=== PATIENT | female | born 1975 | race Caucasian/White ===

== ENCOUNTER 2019-08-08 12:06 | Emergency (ER) | payer SELFPAY ==
[2019-08-08 12:24] VITALS: BP 111/77
--- NOTE | 2019-08-08 12:30 | UC ---
Complaint Female HPI - HPI Summary HPI Summary: 1 mo of increased urinary frequency, burning, white discharge and low pelvic discomfort. not on control. still gets period. nothing makes it better/ worse. of note is asking for refill of her urine medication. - History Of Current Complaint Chief Complaint: UCGU Stated Complaint: PERSONAL Time Seen by Provider: 08/08/19 12:26 Hx Obtained From: Patient Hx Last Menstrual Period: 07/15/19 Onset/Duration: Gradual Onset Pain Intensity: 6 Pain Scale Used: 0-10 Numeric - Allergies/Home Medications Allergies/Adverse Reactions: Allergies Allergy/AdvReac Type Severity Reaction Status Date / Time latex Allergy Rash Verified 08/08/19 12:22 PMH/Surg Hx/FS Hx/Imm Hx - Additional Past Medical History Additional PMH: chronic urinary issues Previously Healthy: Yes - Surgical History Surgical History: Yes Surgery Procedure, Year, and Place: Ovarian Cysts x 2; Right Fallopian Tube Removed s/p Ectopic - Family History Known Family History: Positive: Non-Contributory - Social History Alcohol Use: Occasionally Substance Use Type: Marijuana Substance Use Comment - Amount & Last Used: Occasionally Smoking Status (MU): Heavy Every Day Tobacco Smoker Type: Cigarettes Amount Used/How Often: 1 1/2 PPD Length of Time of Smoking/Using Tobacco: Since Age 12 Household Exposure Type: Cigarettes Review of Systems All Other Systems Reviewed And Are Negative: Yes Constitutional: Negative: Fever Genitourinary: Positive: Dysuria, Frequency, Vaginal/Penile Discharge. Negative : Hematuria, Vaginal/Penile Burning, Vaginal/Penile Itching, Abnormal Bleeding Musculoskeletal: Negative: Arthralgia - denies back pain Physical Exam Triage Information Reviewed: Yes Appearance: Well-Appearing Vital Signs: Initial Vital Signs Temp 98.3 F 08/08/19 12:19 Pulse 91 08/08/19 12:19 Resp 18 08/08/19 12:19 BP 111/77 08/08/19 12:19 Pulse Ox 97 08/08/19 12:19 Vital Signs Reviewed: Yes Eyes: Positive: Conjunctiva Clear Respiratory Exam: Normal Cardiovascular Exam: Normal Abdomen Description: Positive: Soft. Negative: CVA Tenderness (R), CVA Tenderness (L) Pelvic Exam: Negative: Other - DECLINED EXAM; SELF SWABBED Neurological: Positive: Alert Skin: Negative: Rashes Complaint Female Dx - Course Course Of Treatment: 1 mo of intermittent pelvic pain, vag d/c , dysuria. UA neg, urine hcg today neg. Will obtain gc/chlam. along w/ aptima testing. will call her if anything comes back positive. advised to use condoms. am able to refill her oxybutinin temporarily. - Differential Dx/Diagnosis Differential Diagnosis/HQI/PQRI: Pelvic Inflammatory Disease, Sexually Transmitted Disease, Urinary Tract Infection Provider Diagnosis: Vaginal discharge Discharge ED - Sign-Out/Discharge Documenting (check all that apply): Patient Departure All imaging exams completed and their final reports reviewed: No Studies - Discharge Plan Condition: Good Disposition: HOME Prescriptions: metroNIDAZOLE VAGINAL 0.75%* 1 applic VAGINAL BEDTIME 7 Days #1 tube Oxybutynin XL TAB* [Ditropan XL TAB*] 5 mg PO TID 30 Days #90 tab.xl Patient Education Materials: Vaginal Discharge (ED) Referrals: No Primary Care Phys,NOPCP [Primary Care Provider] - Additional Instructions: if anything comes up positive we will call you - Billing Disposition and Condition Condition: GOOD Disposition: Home
[2019-08-10 13:32] LABS: Chlamydia trachomatis NAA Negative (Negative); Neisseria gonorrhoeae (GC) NAA Negative (Negative)
== END 2019-08-08 13:08 | disposition home or self-care (01) ==
LOC: UCCORT 12:06
DX: N89.8 Other specified noninflammatory disorders of vagina (principal); R10.2 Pelvic and perineal pain; R35.0 Frequency of micturition; R30.0 Dysuria; Z32.02 Encounter for pregnancy test, result negative; Z30.41 Encounter for surveillance of contraceptive pills; Z91.040 Latex allergy status; F17.210 Nicotine dependence, cigarettes, uncomplicated
CPT/HCPCS: 84702; 87480; 87491; 87510; 87591; 87660; 99212; G0463

== ENCOUNTER 2019-09-27 14:29 | Emergency (ER) | payer SELFPAY ==
--- OUTSIDE RECORDS SUMMARY | 2019-09-27 14:38 | XMS REPORT | Summary of Care ---
:1975 Author Organization [facility] Address [address] [facility] [place] [address] Care Team Providers Name Role Phone None, [place] Primary Care Provider Unavailable Reason for Visit Reason Comments Establish Care Encounter Details Date Type Department Care Team Description 08/31/2019 Office Visit [facility] Neel Ramos MD Well adult exam (Primary Dx); Practice [address] [facility] Anxiety; [address] [place] [address] Bipolar 1 disorder (HCC); [place] [address] Asthma, unspecified asthma severity, unspecified whether complicated, unspecified whether persistent; [phone] Bacterial vaginosis Allergies Active Allergy Reactions Severity Noted Date Comments Latex Hives Medium 08/31/2019 documented as of this encounter (statuses as of 08/31/2019) Medications Medication Sig Dispensed Refills Start End Date Status Date topiramate (TOPAMAX) Take 200 mg by 0 Active 200 MG Oral Tab mouth TWICE DAILY. meloxicam (MOBIC) 15 Take 15 mg by 0 Active MG Oral Tab mouth NEEDED. cyclobenzaprine Take 10 mg by 0 Active (FLEXERIL) 10 MG mouth TWO Oral Tab TIMES DAILY NEEDED. Qylexrolvo-RNTA-Cyrg Take 1 Tab by 0 Active eine (FIORICET PO) mouth EVERY FOUR HOURS NEEDED. SUMATRIPTAN Take 1 Tab by 0 Active SUCCINATE PO mouth NEEDED. Omeprazole delayed Take 20 mg by 0 Active rel cap (PRILOSEC) mouth DAILY. 20 MG Oral CAPSULE DELAYED RELEASE asenapine (SAPHRIS) Place 10 mg 0 Active 10 MG Sublingual SL under tongue Tab TWICE DAILY. albuterol HFA Take 2 Puffs 0 Active (PROAIR HFA) 108 (90 by inhalation Base) MCG/ACT EVERY FOUR Inhalation Aero Soln HOURS NEEDED. ALPRAZolam (XANAX) 2 Take 1 Tab by 90 Tab 0 Active MG Oral mouth THREE 9 TabIndications: TIMES DAILY. Anxiety Max Daily Amount: 6 mg. busPIRone (BUSPAR) Take 1 Tab by 120 Tab 0 Active 15 MG Oral mouth TWICE 9 TabIndications: DAILY. Anxiety cloNIDine (CATAPRES) Take 1 Tab by 60 Tab 0 Active 0.2 MG Oral mouth EVERY 9 TabIndications: BEDTIME. Anxiety quetiapine Take 1 Tab by 180 Tab 0 Active (SEROQUEL) 200 MG mouth THREE 9 Oral TabIndications: TIMES DAILY. Bipolar 1 disorder (HCC) Quetiapine Fumarate Take 1 Tab by 60 Tab 0 Active (SEROQUEL) 400 MG mouth EVERY 9 Oral TabIndications: BEDTIME. Bipolar 1 disorder (HCC) metroNIDAZOLE Take 1 Tab by 14 Tab 0 Active (FLAGYL) 500 MG Oral mouth TWICE 9 TabIndications: DAILY. Bacterial vaginosis quetiapine Take 200 mg by 0 08/31/20 Discontinued (SEROQUEL) 200 MG mouth THREE 19 (Reorder) Oral Tab TIMES DAILY. Quetiapine Fumarate Take 400 mg by 0 08/31/20 Discontinued (SEROQUEL) 400 MG mouth EVERY 19 (Reorder) Oral Tab BEDTIME. cloNIDine (CATAPRES) Take 0.2 mg by 0 08/31/20 Discontinued 0.2 MG Oral Tab mouth EVERY 19 (Reorder) BEDTIME. ALPRAZolam (XANAX) 2 Take 2 mg by 0 08/31/20 Discontinued MG Oral Tab mouth THREE 19 (Reorder) TIMES DAILY. busPIRone (BUSPAR) Take 15 mg by 0 08/31/20 Discontinued 15 MG Oral Tab mouth TWICE 19 (Reorder) DAILY. documented as of this encounter (statuses as of 08/31/2019) Active Problems Problem Noted Date Bipolar 1 disorder, mixed, moderate 08/31/2019 Migraine 08/31/2019 Mild intermittent asthma without complication 08/31/2019 Anxiety 08/31/2019 documented as of this encounter (statuses as of 08/31/2019) Social History Tobacco Use Types Packs/Day Years Used Date Current Every Day Smoker Cigarettes 1.5 Smokeless Tobacco: Never Used Alcohol Use Drinks/Week oz/Week Comments Yes rarly Sex Assigned at Date Recorded Not on file Job Start Date Occupation Industry Not on file Not on file Not on file Travel History Travel Start Travel End No recent travel history available. documented as of this encounter Last Filed Vital Signs Vital Sign Reading Time Taken Comments Blood Pressure 122/82 08/31/2019 1:11 PM EDT Pulse 89 08/31/2019 1:11 PM EDT Temperature 37.6 08/31/2019 1:11 PM EDT C (99.7 F) Respiratory Rate - - Oxygen Saturation 99% 08/31/2019 1:11 PM EDT Inhaled Oxygen Concentration - - Weight 82.6 kg (182 lb) 08/31/2019 1:11 PM EDT Height 168.3 cm (5' 6.25") 08/31/2019 1:11 PM EDT Body Mass Index 29.15 08/31/2019 1:11 PM EDT documented in this encounter Progress Notes Neel Ramos MD - 08/31/2019 1:00 PM EDT PATIENT: Jeannine Rashid : 1975 DATE OF SERVICE: 08/31/2019 CHIEF COMPLAINT: Chief Complaint Patient presents with [facility] Care Subjective HISTORY OF PRESENT ILLNESS: Jeannine Rashid is a 44-y.o. female. Pt presents for initial visit--has PMHx of Bipolar Disorder with mixed features , anxiety disorder, migraine headaches, and mild intermittent asthma. Comes in today with pill bottles for medication she requires refilled. We do not have any medical records for this patient but she does state she will request her records for review. States she had a MMG and pap done 6 months or so ago. Only surgery is aUSO for cysts. She states her medication keeps her stable and able to function well. States she had been on more in the past with sedation side effects. She also presents today with a light vaginal discharge similar to a recent BV infection she had treated. Reportedly all other testing negative at thetime for STD and UTI. Past Medical History: Diagnosis Date Anxiety Asthma Migraines Psychiatric problem History reviewed. No pertinent family history. Current Outpatient Medications Medication Sig albuterol HFA (PROAIR HFA) 108 (90 Base) MCG/ACT Inhalation Aero Soln Take 2 Puffs by inhalation EVERY FOUR HOURS NEEDED. ALPRAZolam (XANAX) 2 MG Oral Tab Take 2 mg by mouth THREE TIMES DAILY. asenapine (SAPHRIS) 10 MG Sublingual SL Tab Place 10 mg under tongue TWICE DAILY. busPIRone (BUSPAR) 15 MG Oral Tab Take 15 mg by mouth TWICE DAILY. Uwpxpaqpui-NVPP-Kwomvltd (FIORICET PO) Take 1 Tab by mouth EVERY FOUR HOURS NEEDED. cloNIDine (CATAPRES) 0.2 MG Oral Tab Take 0.2 mg by mouth EVERY BEDTIME. cyclobenzaprine (FLEXERIL) 10 MG Oral Tab Take 10 mg by mouth TWO TIMES DAILY NEEDED. meloxicam (MOBIC) 15 MG Oral Tab Take 15 mg by mouth NEEDED. Omeprazole delayed rel cap (PRILOSEC) 20 MG Oral CAPSULE DELAYED RELEASE Take 20 mg by mouth DAILY. quetiapine (SEROQUEL) 200 MG Oral Tab Take 200 mg by mouth THREE TIMES DAILY. Quetiapine Fumarate (SEROQUEL) 400 MG Oral Tab Take 400 mg by mouth EVERY BEDTIME. SUMATRIPTAN SUCCINATE PO Take 1 Tab by mouth NEEDED. topiramate (TOPAMAX) 200 MG Oral Tab Take 200 mg by mouth TWICE DAILY. No current facility-administered medications for this visit. Allergies Allergen Reactions Latex Hives Social History Socioeconomic History Marital status: Single Spouse name: Not on file Number of children: Not on file Years of education: Not on file Highest education level: Not on file Occupational History Not on file Social Needs Financial resource strain: Not on file Food insecurity: Worry: Not on file Inability: Not on file Transportation needs: Medical: Not on file Non-medical: Not on file Tobacco Use Smoking status: Current Every Day Smoker Packs/day: 1.50 Types: Cigarettes Smokeless tobacco: Never Used Substance and Sexual Activity Alcohol use: Yes Comment: rarly Drug use: Yes Types: Marijuana Sexual activity: Not on file Lifestyle Physical activity: Days per week: Not on file Minutes per session: Not on file Stress: Not on file Relationships Social connections: Talks on phone: Not on file Gets together: Not on file Attends yazidism service: Not on file Active member of club or organization: Not on file Attends meetings of clubs or organizations: Not on file Relationship status: Not on file Intimate partner violence: Fear of current or ex partner: Not on file Emotionally abused: Not on file Physically abused: Not on file Forced sexual activity: Not on file Other Topics Concern Not on file Social History Narrative Not on file Over the last 2 weeks, have you been feeling down, depressed, anxious, or hopeless?: 0 Over the past 2 weeks, have you felt little interest or pleasure in doing things ?: 0 REVIEW OF SYSTEMS: Review of Systems Constitutional: Negative for chills, diaphoresis, fever and weight loss. HENT: Negative for congestion, ear pain, nosebleeds, sore throat and tinnitus. Eyes: Negative for blurred vision and pain. Respiratory: Positive for cough and wheezing. Negative for hemoptysis, sputum production and shortness of breath. Cardiovascular: Negative for chest pain, orthopnea and claudication. Gastrointestinal: Negative for constipation, diarrhea, heartburn, nausea and vomiting. Genitourinary: Negative for dysuria, frequency and hematuria. Musculoskeletal: Negative for back pain, falls and neck pain. Skin: Negative for itching and rash. Neurological: Negative for dizziness, tremors, focal weakness and headaches. Psychiatric/Behavioral: Negative for depression, memory loss and substance abuse. The patient is nervous/anxious. Objective PHYSICAL EXAM: VITALS: BP 122/82 (BP Location: Left arm, Patient Position: Sitting) | Pulse 89 | Temp 99.7 F(37.6 C) (Tympanic) | Ht 5' 6.25" (1.683 m) | Wt 182 lb (82.6 kg) | LMP 08/17/2019 | SpO2 99% | ? No | BMI 29.15 kg/ m Body mass index is 29.15 kg/m. Physical Exam Vitals signs and nursing note reviewed. Constitutional: General: She is not in acute distress. Appearance: Normal appearance. She is not ill-appearing, toxic-appearing or diaphoretic. HENT: Head: Normocephalic. Right Ear: Tympanic membrane normal. Left Ear: Tympanic membrane normal. Nose: Nose normal. No rhinorrhea. Mouth/Throat: Mouth: Mucous membranes are moist. Eyes: General: Right eye: No discharge. Left eye: No discharge. Pupils: Pupils are equal, round, and reactive to light. Neck: Musculoskeletal: Normal range of motion. Cardiovascular: Rate and Rhythm: Normal rate and regular rhythm. Pulses: Normal pulses. Heart sounds: Normal heart sounds. No murmur. No friction rub. No gallop. Pulmonary: Effort: Pulmonary effort is normal. Breath sounds: Wheezing present. No rhonchi or rales. Abdominal: General: Abdomen is flat. Palpations: Abdomen is soft. Genitourinary: General: Normal vulva. Vagina: Vaginal discharge present. Lymphadenopathy: Cervical: No cervical adenopathy. Skin: General: Skin is warm and dry. Neurological: General: No focal deficit present. Mental Status: She is alert and oriented to person, place, and time. Psychiatric: Mood and Affect: Mood normal. Thought Content: Thought content normal. ASSESSMENT / IMPRESSION: 1. Well adult exam 2. Anxiety 3. Bipolar 1 disorder (HCC) 4. Asthma, unspecified asthma severity, unspecified whether complicated, unspecified whether persistent 5. Bacterial vaginosis Plan 1. Well adult exam Pt here for initial visit--Discussed much of her medical history and has agreed to send for records release from previous provider. Will validate preventive services previously completed and we also agreed to wait until November when her new insurance will start. 2. Anxiety Refilled medication at current dosing per current prescription bottles. Will validate with records and consider further adjustments based upon history and current conditions. - ALPRAZolam (XANAX) 2 MG Oral Tab; Take 1 Tab by mouth THREE TIMES DAILY. Max Daily Amount: 6 mg. Dispense: 90 Tab; Refill: 0 - busPIRone (BUSPAR) 15 MG Oral Tab; Take 1 Tab by mouth TWICE DAILY. Dispense : 120 Tab; Refill: 0 - cloNIDine (CATAPRES) 0.2 MG Oral Tab; Take 1 Tab by mouth EVERY BEDTIME. Dispense: 60 Tab; Refill: 0 3. Bipolar 1 disorder (HCC) As above. Refilled these meds but is also on several others not requiring refill at this time. Awaitmedical records. - quetiapine (SEROQUEL) 200 MG Oral Tab; Take 1 Tab by mouth THREE TIMES DAILY. Dispense: 180 Tab; Refill: 0 - Quetiapine Fumarate (SEROQUEL) 400 MG Oral Tab; Take 1 Tab by mouth EVERY BEDTIME. Dispense: 60 Tab; Refill: 0 4. Asthma, unspecified asthma severity, unspecified whether complicated, unspecified whether persistent Apparently controlled with intermittant albuterol. Patient admits to wheezing more than she uses herinhaler. Again, prefers to wait until November when new insurance starts IOT further assess need for controller medication. 5. Bacterial vaginosis +Clue Cells. Will treat and if no results, will check UA and repeat STD evaluation which was reportedly negative a few weeks ago. - metroNIDAZOLE (FLAGYL) 500 MG Oral Tab; Take 1 Tab by mouth TWICE DAILY. Dispense: 14 Tab; Refill: 0 - WET PREP & MARIYA (AMB POCT) Author: Neel Ramos MD 08/31/2019 13:45 documented in this encounter Plan of Treatment Health Maintenance Due Date Last Done Comments PNEUMOCOCCAL 0-64 YRS ( - 1980 PPSV23) HIV SCREENING 1989 DIABETES SCREENING 1992 LIPID DISORDER SCREENING 1992 MAMMOGRAM (SCREENING) 09/01/2019 09/01/2018 DEPRESSION SCREENING 08/31/2020 08/31/2019 INFLUENZA VACCINE (#1) 2020 Postponed from 07/19/2019 (Patient refused) PAP SMEAR 09/01/2021 09/01/2018 HPV IMMUNIZATION SERIES Aged Out No longer eligible based on patient's age to complete this topic MENINGOCOCCAL VACCINE IMM Aged Out No longer eligible based on patient's age to complete this topic documented as of this encounter Goals Goal Patient Goal Associated Recent Patient-Stated? Author Type Problems Progress Depression Depression No angela Ramos (PHQ-9) MD Neel total score < 5 Note: This is an individualized treatment (depression) goal for Jeanninemagda Rashid: Displayed above is your goal for a depression screening (PHQ-9) score that would indicate good control of your depression. Keep a regular sleep schedule Lifestyle No Neel Ramos MD Note: This is an individualized lifestyle goal for Jeannine Rashid: Please maintain a regular sleep schedule. This may help with some symptoms of depression. Take all prescribed medications as directed Self-management No Neel Ramos MD Note: This is an individualized self-management goal for Jeannine Rashid: Please take all prescribed medications as directed. 1. Do not skip doses. If you cannot afford your medications, talk with your doctor. 2. Use a pill reminder system such as a pill box if needed. Your pharmacist can help you with this. 3. Contact your Pharmacy 5 days before your medication runs out. If you cannot take your medications for any reasons, talk with your doctor. 4. Please bring all of your medication bottles and inhalers (or a list of all your medications/inhalers) with you to every visit. Potential barriers to meeting all of your care plan goals will continue to be addressed on an ongoing basis. documented as of this encounter Procedures Procedure Name Priority Date/Time Associated Diagnosis Comments WET PREP & MARIYA (AMB Routine 08/31/2019 1:30 PM Bacterial vaginosis Results for this POCT) EDT procedure are in the results section. PAP SMEAR THINPREP Routine 09/01/2018 Results for this AND HPV (EXTERNAL) procedure are in the results section. MAMMO SCREEN Routine 09/01/2018 Results for this BILATERAL (NON procedure are in SILVERIO) the results section. documented in this encounter Results WET PREP & MARIYA (AMB POCT) (08/31/2019 1:30 PM EDT) WP Clue Cells Present (A) Absent [facility] IN POCT Hyphae Absent Absent [facility] POCT MICROSCOPE CLEANED? Yes [facility] POCT Specimen Performing Organization Address [facility] Phone Number [facility] [address] [place] [address] PAP SMEAR THINPREP AND HPV (EXTERNAL) (09/01/2018) HM PAP SMEAR normal [facility] POCT Performing Organization Address [facility] Phone Number [facility] [address] [place] [address] MAMMO SCREEN BILATERAL (NON SILVERIO) (09/01/2018) HM MAMMOGRAM normal [facility] POCT Performing Organization Address [facility] Phone Number [facility] [address] [place] [phone] documented in this encounter Visit Diagnoses Diagnosis Well adult exam - Primary Routine general medical examination at a health care facility Anxiety Anxiety state, unspecified Bipolar 1 disorder (HCC) Bipolar I disorder, most recent episode (or current) unspecified Asthma, unspecified asthma severity, unspecified whether complicated, unspecified whether persistent Bacterial vaginosis Vaginitis and vulvovaginitis, unspecified documented in this encounter
[2019-09-27 14:42] VITALS: BP 140/87
--- NOTE | 2019-09-27 14:58 | UC ---
Respiratory Complaint HPI - HPI Summary HPI Summary: Patient is 44 year old female, who present today to the urgent care with cough and congestion for past 1 week. Symptoms got worse yesterday. Cough is mainly dry and nonproductive. She reports associated body aches, denies any sore throat No specific sick contacts but she works at the [employer]. Reports subjective fevers but she did not take any medicine. Took Robitussin today morning Denies any chest pain, abdominal pain , nausea or vomiting , diarrhea or constipation. - History of Current Complaint Chief Complaint: UCGeneralIllness Stated Complaint: RESP ISSUE COUGH BODYACHES Time Seen by Provider: 09/27/19 14:55 Hx Obtained From: Patient Hx Last Menstrual Period: 2 weeks ago Pain Intensity: 5 - Allergies/Home Medications Allergies/Adverse Reactions: Allergies Allergy/AdvReac Type Severity Reaction Status Date / Time latex Allergy Rash Verified 09/27/19 14:42 Home Medications: Home Medications Butalb/Acetamin/Caff TAB* [Fioricet TAB*] 1 tab PO Q6H PRN 09/27/19 [History Confirmed 09/27/19] SUMAtriptan TAB* [Imitrex TAB*] 25 mg PO SEE INSTRUCTIONS PRN 09/27/19 [History Confirmed 09/27/19] PMH/Surg Hx/FS Hx/Imm Hx - Additional Past Medical History Additional PMH: Past Medical History : Asthma on pro-air inhaler, bipolar, agoraphobia, schizoaffective disorder, sciatica Past Surgical History: Only and cyst 2, D&C, right fallopian tube removal due to ectopic Family History : non contributory Social History : Occasional alcohol, daily smoker 1-1/2 pack per day, reports marijuana use use. Previously Healthy: Yes - Surgical History Surgical History: Yes Surgery Procedure, Year, and Place: Ovarian Cysts x 2; Right Fallopian Tube Removed s/p Ectopic . D&C - Family History Known Family History: Positive: Non-Contributory - Social History Alcohol Use: Occasionally Substance Use Type: Marijuana Substance Use Comment - Amount & Last Used: Occasionally Smoking Status (MU): Heavy Every Day Tobacco Smoker Type: Cigarettes Amount Used/How Often: 1 1/2 PPD Length of Time of Smoking/Using Tobacco: Since Age 12 Household Exposure Type: Cigarettes Review of Systems All Other Systems Reviewed And Are Negative: Yes Constitutional: Positive: Fever, Chills Skin: Positive: Negative Eyes: Positive: Negative ENT: Positive: Other - Congestion. Negative: Sore Throat Respiratory: Positive: Cough - Try Cardiovascular: Positive: Negative. Negative: Chest Pain Gastrointestinal: Positive: Negative Genitourinary: Positive: Negative Motor: Positive: Negative Neurovascular: Positive: Negative Musculoskeletal: Positive: Negative Neurological: Positive: Negative Psychological: Positive: Negative Is Patient Immunocompromised?: No Physical Exam - Summary Physical Exam Summary: Physical Exam: Const: Appears well. No signs of apparent distress present. Alert and oriented x 3. Musculo: Walks with a normal gait. Head/Face: Atraumatic, normocephalic on inspection. Eyes: EOMI and PERRLA in both eyes. Conjunctivae clear. No discharge noted ENT: Hearing normal, TM normal appearing bilaterally No tenderness to palpation on maxillary and frontal sinus. Mild pharyngeal erythema without any exudates . Uvula is midline. No cervical or submandibular lymphadenopathy noted. Respiratory: Respirations are unlabored. Decreased air entry bilaterally with rhonchi noted throughout both lungs with some wheezing and crackles noted in bilateral lower lobes CVS: Regular rate and Rhythm, S1S2 normal , no murmurs identified. Extremities: Peripheral circulation is grossly normal. Pulses 2+ Abdomen : Soft non tender , nondistended , Bowel sounds present . No guarding , rebound tenderness or rigidity noted. Skin: No lesions or rash located on the upper extremities or on the lower extremities. Neuro: Cranial nerves II to XII intact, motor and sensory intact. DTR Intact bilaterally. Mood is normal. Affect is normal. Triage Information Reviewed: Yes Vital Signs: Initial Vital Signs Temp 98 F 09/27/19 14:38 Pulse 96 09/27/19 14:38 Resp 24 09/27/19 14:38 BP 140/87 09/27/19 14:38 Pulse Ox 98 09/27/19 14:38 Vital Signs Reviewed: Yes Diagnostics - Radiology No standard instances Radiology Interpretation Completed By: Radiologist - Chest Xray: IMPRESSION: NO ACTIVE CARDIOPULMONARY DISEASE. Respiratory Course/Dx - Course Course Of Treatment: During the visit today, we obtained a rapid strep test and flu test which was negative . Chest x-ray: IMPRESSION: NO ACTIVE CARDIOPULMONARY DISEASE. She was given 1 DuoNeb nebulizer treatment and her exam improved with decreased rhonchi and wheezing with improved air entry. Suspect bronchitis versus asthma/COPD exacerbation given her smoking history We discussed the findings and further plan. I will prescribe the medication to the pharmacy . Patient expressed understanding . - Differential Dx/Diagnosis Differential Diagnosis/HQI/PQRI: Exacerbation Of COPD Provider Diagnosis: Acute bronchitis, Asthma exacerbation Discharge ED - Sign-Out/Discharge Documenting (check all that apply): Patient Departure All imaging exams completed and their final reports reviewed: Yes - Discharge Plan Condition: Stable Disposition: HOME Prescriptions: Azithromyxin KT (NF) [Z-Kt (Zithromax) 250 mg tabs #6] 2 tab PO .TODAY, THEN 1 DAILY #6 tab predniSONE [Prednisone 20 MG TAB] 20 mg PO DAILY 5 Days #15 tablet Patient Education Materials: Asthma (DC), Acute Bronchitis (ED) Forms: *Work Release Referrals: No Primary Care Phys,NOPCP [Primary Care Provider] - 1 Week Additional Instructions: Please start taking the medication as prescribed to the pharmacy . Follow up with your primary care doctor at [place] in 1 week for recheck Patients blood pressure slightly high in Urgent care today , plan follow up with PCP for better control Return to Urgent care / ER if symptoms get worse. - Billing Disposition and Condition Condition: STABLE Disposition: Home
[2019-09-27] MEDS ORDERED: Albuterol/Ipratropium NEB.SOL* Albuterol 2.5 MG/Ipratropium 0.5 MG 3 ML INH ONE (15:05)
[2019-09-27 15:26] LABS: Influenza A Molecular NEGATIVE (Negative); Influenza B Molecular NEGATIVE (Negative)
== END 2019-09-27 16:00 | disposition home or self-care (01) ==
LOC: UCEAST 14:29
DX: J20.9 Acute bronchitis, unspecified (principal); J45.901 Unspecified asthma with (acute) exacerbation; F17.210 Nicotine dependence, cigarettes, uncomplicated; Z91.040 Latex allergy status
CPT/HCPCS: 71046; 87651; 99212; A9270-GY; G0463